=== PATIENT | female | born 1975 | race Caucasian/White ===

== ENCOUNTER 2018-02-16 11:54 | Emergency (ER) | payer MEDICARE ==
[2018-02-16 12:49] VITALS: BP 139/83; PULSE 55; O2SAT 100
--- NOTE | 2018-02-16 13:09 | ERPHSYRPT ---
- History of Present Illness Time Seen by Provider: 02/16/18 12:55 Source: patient Exam Limitations: no limitations Patient Subjective Stated Complaint: STATES HAS BEEN HAVING RIGHT SHOULDER PAIN FOR AWHILE AND HAS GOTTEN WORSE SINCE YESTERDAY. DENIES ANY INJURY Triage Nursing Assessment: AMBULATED TO ROOM PER SELF. SKIN W/D, COLOR NORMAL, RESP EASY. NO INJURY NOTED TO RIGHT SHOULDER. PATIENT UNABLE TO RAISE RIGHT ARM COMPLETELY. GOOD RADIAL PULSE AND ARM AND HAND WARM TO TOUCH WITH NORMAL COLOR AND GOOD CAP REFILL. Physician History: 43 y/o right shoulder pain white female presents with worsening right shoulder pain. pain present for 3 months. worse in last 3 days. no injury. feels as though it it out of place Method of Injury: unknown Quality: constant Severity of Pain-Max: moderate Severity of Pain-Current: mild Extremities Pain Location: shoulder: right Modifying Factors: Improves With: movement (worsens) Associated Symptoms: none, No chest discomfort, No chest pain, No dyspnea, No fever, No jaw pain, No short of breath Allergies/Adverse Reactions: No Known Drug Allergies Allergy (Unverified 02/16/18 12:40) Hx Tetanus, Diphtheria Vaccination/Date Given: No Hx Influenza Vaccination/Date Given: No Hx Pneumococcal Vaccination/Date Given: No - Review of Systems Constitutional: No Symptoms, No Fever, No Weakness Eyes: No Symptoms, No Discharge, No Eye Pain Ears, Nose, & Throat: No Symptoms, No Ear Pain Respiratory: No Symptoms, No Cough, No Dyspnea, No Stridor, No Wheezing Cardiac: No Symptoms, No Chest Pain, No Palpitations, No Syncope Abdominal/Gastrointestinal: No Symptoms, No Abdominal Pain, No Nausea, No Vomiting, No Diarrhea Genitourinary Symptoms: No Symptoms, No Dysuria, No Frequency, No Hematuria Musculoskeletal: Joint Pain (right shoulder) Skin: No Symptoms Neurological: No Symptoms, No Dizziness, No Gait Changes, No Headache Psychological: No Symptoms Endocrine: No Symptoms Hematologic/Lymphatic: No Symptoms Immunological/Allergic: No Symptoms All Other Systems: Reviewed and Negative - Past Medical History Pertinent Past Medical History: Yes Neurological History: No Pertinent History ENT History: No Pertinent History Cardiac History: No Pertinent History Respiratory History: No Pertinent History Endocrine Medical History: No Pertinent History Musculoskeletal History: No Pertinent History GI Medical History: No Pertinent History History: No Pertinent History Psycho-Social History: Depression Female Reproductive Disorders: No Pertinent History Other Medical History: ptsd - Past Surgical History Past Surgical History: Yes Neuro Surgical History: No Pertinent History Cardiac: No Pertinent History Respiratory: No Pertinent History Gastrointestinal: No Pertinent History Female Surgical History: Section - Social History Smoking Status: Current every day smoker How long have you smoked: 27 Exposure to second hand smoke: No Drug Use: marijuana Patient Lives Alone: No - Female History Hx Last Menstrual Period: 01/31/18 Hx Now: No - Nursing Vital Signs Nursing Vital Signs: Initial Vital Signs Temperature 97.3 F 02/16/18 12:36 Pulse Rate 55 L 02/16/18 12:36 Respiratory Rate 16 02/16/18 12:36 Blood Pressure 139/83 02/16/18 12:36 O2 Sat by Pulse Oximetry 100 02/16/18 12:36 Pain Scale Pain Intensity 10 - Physical Exam General Appearance: mild distress, alert, anxiety Eyes, Ears, Nose, Throat Exam: normal ENT inspection Neck Exam: normal inspection, non-tender, supple, full range of motion Cardiovascular/Respiratory Exam: chest non-tender, normal breath sounds, regular rate/rhythm, heart sounds normal Abdominal Exam: non-tender, soft Back Exam: normal inspection Shoulder Exam: normal inspection, no evidence of injury, normal ROM, pain, soft tissue tenderness (right ) Elbow/Forearm Exam: normal inspection, non-tender, no evidence of injury, normal ROM Wrist Exam: normal inspection, non-tender, no evidence of injury, normal ROM Hand Exam: normal inspection, non-tender, no evidence of injury, normal ROM Neuro/Tendon Exam: normal sensation, normal motor functions, normal tendon functions Mental Status Exam: alert, oriented x 3, cooperative Skin Exam: normal color, warm, dry SpO2 Interpretation: normal, borderline oxygenation, hypoxic SpO2: 100 Oxygen Delivery: Room Air - Course Nursing assessment & vital signs reviewed: Yes Ordered Tests: Active Orders 24 hr Category Date Time Status SHOULDER Stat Exams 02/16/18 13:10 Completed - Progress Progress: unchanged Progress Note: 02/16/18 14:02 xray-no acute process; chronic changes present Counseled pt/family regarding: diagnosis, need for follow-up, rad results - Departure Time of Disposition: 14:02 Departure Disposition: Home Clinical Impression: Shoulder pain, right Condition: Stable Critical Care Time: No Referrals: SADIA MOROCHO [Primary Care Provider] - Additional Instructions: follow up with primary doctor for further management Prescriptions: Carisoprodol 350 mg [Soma 350 mg] 350 mg PO Q8H PRN PRN #10 tablet PRN Reason: Muscle Spasms Oxycodone HCl/Acetaminophen [Percocet 5-325 mg Tablet] 1 each PO Q12H PRN PRN # 5 tablet MDD 2 PRN Reason: Pain Prednisone 10 mg [Deltasone 10 mg] 10 mg PO TID #12 tablet
--- NOTE | 2018-02-16 13:38 | XRAY ---
Indication: Pain 3 days. No known injury. Comparison: None 3 views of the right shoulder demonstrates tiny heterotopic ossifications adjacent to the greater tuberosity humerus, sequela to old injury/inflammation. No other bony, articular, or soft tissue abnormalities.
== END 2018-02-16 14:37 | disposition home or self-care (01) ==
LOC: ED 11:54
DX: M25.511 Pain in right shoulder (principal)
CPT/HCPCS: 73030; 99283

== ENCOUNTER → 2019-02-27 | Day surgery (SDC) | payer MEDICARE | LOC: CLIN-SCCH 08:00 | PROVIDERS: ATTEND Nurse Practitioner Family | DX: R09.82 Postnasal drip (principal) | CPT/HCPCS: 99213 ==

== ENCOUNTER 2019-04-03 18:39 | Emergency (ER) | payer MEDICARE ==
[2019-04-03 19:04] VITALS: O2SAT 100
[2019-04-03 19:33] VITALS: BP 133/76; PULSE 67
[2019-04-03] MEDS ORDERED: MOTRIN 600 MG PO ONE (19:33)
[2019-04-03] MEDS ORDERED: Augmentin 875-125 Tablet PO ONE (19:33)
[2019-04-03] MEDS ORDERED: Augmentin 875-125 Tablet ONE (19:42)
--- NOTE | 2019-04-03 19:42 | ERPHSYRPT ---
- History of Present Illness Time Seen by Provider: 04/03/19 18:55 Source: patient Exam Limitations: no limitations Patient Subjective Stated Complaint: STATES HAS HAD SWELLING TO RIGHT JAW AND MOUTH FOR THREE DAYS. STATES HAS A TOOTHACHE. HAD DENTIST APPT TODAY BUT STATES SHE OVERSLEPT. Triage Nursing Assessment: AMBULATED TO ROOM PER SELF. SKIN W/D, COLOR NORMAL. NOTED MODERATE SWELLING TO RIGHT JAW. NO RESP DISTRESS NOTED. Physician History: Patient has had swelling to the right jaw for the past three days. Patient has tried antibiotics for her dog without any relief. Patient had an appointment today with her dentist but she slept through her appointment. Patient is concerned about the mild swelling to her right side of her jaw and under the right side of her tongue, but she denies any pain. Timing/Duration: gradual onset Severity: moderate ENT Location: dental Prearrival Treatment: prescription meds Modifying Factors: Improves With: nothing Associated Symptoms: facial pain/swelling, tooth pain (right lower side), No ear pain (R), No ear pain (L), No cough, No fever, No chills, No change in hearing, No dizziness, No ear drainage, No headache, No hearing loss, No jaw pain, No malaise, No motion sickness, No nasal congestion/drainage, No epistaxis , No nasal foreign body, No neck pain, No poor fluid intake, No poor solids intake, No ringing of ears, No swollen glands, No sinus infection, No sore throat, No difficulty swallowing, No voice change Allergies/Adverse Reactions: No Known Drug Allergies Allergy (Verified 04/03/19 18:53) Hx Tetanus, Diphtheria Vaccination/Date Given: No Hx Influenza Vaccination/Date Given: No Hx Pneumococcal Vaccination/Date Given: No - Review of Systems Constitutional: No Fever, No Chills Eyes: No Eye Pain, No Eye Redness, No Vision Changes Ears, Nose, & Throat: No Ear Pain, No Nose Congestion, No Mouth Pain, No Throat Pain, No Throat Swelling, No Painful Swallowing Respiratory: No Cough, No Dyspnea Cardiac: No Chest Pain, No Edema, No Syncope Abdominal/Gastrointestinal: No Abdominal Pain, No Nausea, No Vomiting, No Diarrhea Genitourinary Symptoms: No Dysuria, No Hematuria, No Flank Pain Musculoskeletal: No Back Pain, No Neck Pain Skin: No Rash Neurological: No Dizziness, No Focal Weakness, No Sensory Changes Psychological: No Symptoms Endocrine: No Excessive Sweating Hematologic/Lymphatic: No Easy Bleeding, No Easy Bruising All Other Systems: Reviewed and Negative - Past Medical History Pertinent Past Medical History: Yes Neurological History: No Pertinent History ENT History: No Pertinent History Cardiac History: No Pertinent History Respiratory History: No Pertinent History Endocrine Medical History: No Pertinent History Musculoskeletal History: No Pertinent History GI Medical History: No Pertinent History History: No Pertinent History Psycho-Social History: Depression Female Reproductive Disorders: No Pertinent History Other Medical History: ptsd - Past Surgical History Past Surgical History: Yes Neuro Surgical History: No Pertinent History Cardiac: No Pertinent History Respiratory: No Pertinent History Gastrointestinal: No Pertinent History Female Surgical History: Section - Social History Smoking Status: Current every day smoker How long have you smoked: 20 Exposure to second hand smoke: No Drug Use: none Patient Lives Alone: No - Female History Hx Last Menstrual Period: THREE DAYS AGO Hx Now: No - Nursing Vital Signs Nursing Vital Signs: Initial Vital Signs Temperature 100.4 F 04/03/19 18:47 Pulse Rate 80 04/03/19 18:47 Respiratory Rate 18 04/03/19 18:47 Blood Pressure 144/83 04/03/19 18:47 O2 Sat by Pulse Oximetry 100 04/03/19 18:47 Pain Scale Pain Intensity 9 - Physical Exam General Appearance: no apparent distress, alert Eye Exam: bilateral eye: normal inspection, PERRL, EOMI Ear Exam: bilateral ear: auricle normal, canal normal, TM normal Nasal Exam: normal inspection Throat Exam: pharynx normal, mandibular swelling (mild, right side only), moist mucus membranes (broken tooth #30), No dental tenderness, No excessive drooling , No maxillary swelling, No pharynx swelling, No pharynx tenderness, No tongue swollen, No tonsillar exudate, No tonsillar swelling, No trismus, No uvula swelling Neck Exam: normal inspection, non-tender, supple, full range of motion, trachea midline, No JVD, No limited range of motion, No lymphadenopathy (L), No tender midline, No Brudzinski's sign Cardiovascular/Respiratory Exam: normal breath sounds, regular rate/rhythm, heart sounds normal, no JVD, no M/R/G, no respiratory distress Abdominal Exam: non-tender, soft, No guarding, No tenderness Neurologic Exam: alert, oriented x 3, sales support manager II-XII nml as tested, normal mood/ affect, sensation nml, No motor deficits, No facial droop Skin Exam: normal color, warm, dry SpO2 Interpretation: normal SpO2: 100 O2 Delivery: Room Air Ordered Tests: Medication Summary Discontinued Medications Generic Name Dose Route Start Last Admin Trade Name Ederq PRN Reason Stop Dose Admin Amoxicillin/Clavulanate Potassium 875 mg 04/03/19 19:33 Augmentin 875-125 Tablet PO 04/03/19 19:34 STAT ONE Ibuprofen 600 mg 04/03/19 19:33 Motrin 600 Mg PO 04/03/19 19:34 STAT ONE - Progress Progress: unchanged Progress Note: 04/03/19 19:42 Patient understands not to do any further smoking until she sees her dentist. Patient does not need any other further treatment here in the emergency department besides oral medication as she is hemodynamically in good condition, has a clear upper airway and is able to take oral medication. Patient denies any pain at this time is concerned it is fine to the jaw underneath her right tongue. I do not see any Cain's angina at this time or any other deeper posterior oropharyngeal infections at this time that require CT scan imaging or specialist evaluation immediately. Counseled pt/family regarding: diagnosis, need for follow-up - Departure Departure Disposition: Home Clinical Impression: Periapical abscess, Elevated blood pressure reading without diagnosis of hypertension Condition: Good Critical Care Time: No Referrals: SADIA MOROCHO [Primary Care Provider] - 04/04/19 (Follow-up with your dentist on 04/04/2019) Instructions: Tooth Abscess (DC), Tooth Decay, Adult (DC), Dental Pain (DC), Quitting Smoking Additional Instructions: Return immediately back to the emergency department if any worse swelling to the face, difficulty swallowing, fever, drooling, difficulty controlling her secretions, painful swallowing, redness to face, neck or jaw, difficulty breathing, tongue swelling, or any other concerning signs or symptoms that were not present at today's emergency department visit for immediate reevaluation in the emergency department. Do not smoke for the next 2 days. Follow up with your dentist you had an 04/03/2019 appointment on 04/04/2019. Discharge/Care Plan PASCALE MANZANO was seen on 04/03/19 in the Emergency Room. The patient was counseled regarding Diagnosis,Lab results, Imaging studies, need for follow up and when to return to the Emergency Room. Prescriptions given: Clindamycin 300mg TID for 7 days; Lodine Twice Daily as needed for pain Discharge Note I have spoken with the patient. I have explained the patient's condition, diagnosis and treatment plan based on the information available to me at this time. I have answered the patient's questions and addressed any concerns. The patient has a good understanding of the patient's diagnosis, condition and treatment plan as can be expected at this point. The vital signs have been stable. The patient's condition is stable and appropriate for discharge from the emergency department. The patient will pursue further outpatient evaluation with the primary care physician or other designated or consulting physician as outlined in the discharge instructions. The patient is agreeable to this plan of care and follow -up instructions have been explained in detail. The patient has received these instruction. The patient is aware that any significant change in condition or worsening of symptoms should prompt an immediate return to this or the closest emergency department or call 911. Prescriptions: Clindamycin HCl 300 mg PO TID 7 Days #21 capsule Etodolac 400 mg [Lodine 400 mg] 400 mg PO BID PRN PRN #20 tablet PRN Reason: Pain
[2019-04-03] MEDS ORDERED: MOTRIN 600 MG ONE (19:43)
== END 2019-04-03 20:03 | disposition home or self-care (01) ==
LOC: ED 18:39
DX: K04.7 Periapical abscess without sinus (principal); R03.0 Elevated blood-pressure reading, without diagnosis of hypertension
CPT/HCPCS: 99283; A9270-GY

== ENCOUNTER 2019-09-04 12:50 | Emergency (ER) | payer MEDICARE ==
--- NOTE | 2019-09-04 13:17 | ERPHSYRPT ---
- History of Present Illness Time Seen by Provider: 09/04/19 12:55 Source: patient Exam Limitations: no limitations Patient Subjective Stated Complaint: Pt states "For the past 7 days my left shoulder hurts. I didnt to anythin to it, but I cannot move it without it hurting. It happened about a year ago and Dr. Fraser saw me here and gave me some medicine and a steroid and after two days it went away." Triage Nursing Assessment: Pt presented alert and oriented X 3, ski pwd Pt ambulates with an upright steady gait, pt holding her left arm bent and up against her body supporting her shoulder. Physician History: 44 yo wf w L shoulder pain x7days. Pt has had similar pain in the past. Pain is 9 out of 10 and worse w movement. She denies acute injury/chest pain/dyspnea.Pt is disabled due to PTSD. Occurred: other (1 week) Method of Injury: unknown Quality: constant Severity of Pain-Max: severe Severity of Pain-Current: severe Extremities Pain Location: shoulder: left Modifying Factors: Improves With: movement Associated Symptoms: none Allergies/Adverse Reactions: No Known Drug Allergies Allergy (Verified 04/03/19 18:53) Home Medications: No Reportable Medications [No Reported Medications] 09/04/19 [History] Hx Tetanus, Diphtheria Vaccination/Date Given: No Hx Influenza Vaccination/Date Given: No Hx Pneumococcal Vaccination/Date Given: No Immunizations Up to Date: Yes Travel Risk - International Travel Have you traveled outside of the country in past 3 weeks: No Have you or anyone close to you been diagnosed with or: No Do your reside in a community with a known COVID-19 case?: Yes If Yes where:: [place] - Coronavirus Screening Has patient experienced Coronavirus symptoms: No - Review of Systems Constitutional: No Symptoms Eyes: No Symptoms Ears, Nose, & Throat: No Symptoms Respiratory: No Symptoms Cardiac: No Symptoms Abdominal/Gastrointestinal: No Symptoms Genitourinary Symptoms: No Symptoms Musculoskeletal: No Arthralgias, No Back Pain, No Neck Pain, No Deformity, No Fall, No Injury, No Joint Redness, No Joint Pain, No Joint Swelling, No Myalgias Skin: No Symptoms Neurological: No Symptoms Psychological: No Symptoms Endocrine: No Symptoms Hematologic/Lymphatic: No Symptoms Immunological/Allergic: No Symptoms - Past Medical History Pertinent Past Medical History: Yes Neurological History: No Pertinent History ENT History: No Pertinent History Cardiac History: No Pertinent History Respiratory History: No Pertinent History Endocrine Medical History: No Pertinent History Musculoskeletal History: No Pertinent History GI Medical History: No Pertinent History History: No Pertinent History Psycho-Social History: Depression Female Reproductive Disorders: No Pertinent History Other Medical History: ptsd - Past Surgical History Past Surgical History: Yes Neuro Surgical History: No Pertinent History Cardiac: No Pertinent History Respiratory: No Pertinent History Gastrointestinal: No Pertinent History Female Surgical History: Section - Social History Smoking Status: Current every day smoker How long have you smoked: years Exposure to second hand smoke: Yes Alcohol Use: None Drug Use: none Patient Lives Alone: No - Female History Hx Last Menstrual Period: 08/30/2019 Hx Now: No - Nursing Vital Signs Nursing Vital Signs: Initial Vital Signs Temperature 98.4 F 09/04/19 12:57 Pulse Rate 90 09/04/19 12:57 Respiratory Rate 22 09/04/19 12:57 Blood Pressure 147/97 09/04/19 12:57 O2 Sat by Pulse Oximetry 100 09/04/19 12:57 Pain Scale Pain Intensity 8 - Physical Exam General Appearance: no apparent distress Eyes, Ears, Nose, Throat Exam: normal ENT inspection Neck Exam: normal inspection, non-tender, supple, full range of motion Cardiovascular/Respiratory Exam: chest non-tender, normal breath sounds, regular rate/rhythm, heart sounds normal Abdominal Exam: non-tender, soft, no organomegaly Back Exam: normal inspection, normal range of motion, No CVA tenderness, No vertebral tenderness, No rash, No decreased range of motion Shoulder Exam: limited ROM (TTP over L lateral deltoid/pain w abduction and external rotation/good radial pulse, distal sensation, and capillary return), No deformity Elbow/Forearm Exam: normal inspection Wrist Exam: normal inspection Hand Exam: normal inspection Neuro/Tendon Exam: normal sensation, normal motor functions, normal tendon functions, responds to pain, no evidence tendon injury, No motor deficit, No sensory deficit Mental Status Exam: alert, oriented x 3, cooperative, No agitated, No uncooperative, No depressed affect, No disoriented to person, No disoriented to place, No disoriented to time, No intoxicated appearance, No lethargy, No unresponsive Skin Exam: normal color, warm, dry, No rash SpO2 Interpretation: normal SpO2: 100 O2 Delivery: Room Air - Course Nursing assessment & vital signs reviewed: Yes Ordered Tests: Medication Summary Discontinued Medications Generic Name Dose Route Start Last Admin Trade Name Kalia PRN Reason Stop Dose Admin Ketorolac Tromethamine 60 mg 09/04/19 13:11 09/04/19 13:22 Toradol 30 Mg Injection IM 09/04/19 13:12 60 mg STAT ONE Administration Ketorolac Tromethamine Confirm 09/04/19 13:21 Toradol 30 Mg Injection Administered 09/04/19 13:22 Dose 60 mg .ROUTE .STK-MED ONE - Progress Progress Note: 09/04/19 13:19 60mg IM toradol 09/04/19 13:25 Pt given Rx for Toradol 10mg #10/Norflex 100mg #10 - Departure Departure Disposition: Home Clinical Impression: Tendinitis of left rotator cuff, Elevated blood pressure reading without diagnosis of hypertension Condition: Stable Critical Care Time: No Referrals: SADIA MOROCHO [Primary Care Provider] - Additional Instructions: Rest/heat/Massage Follow up with family MD for continued pain Toradol and norflex as needed
[2019-09-04] MEDS ORDERED: TORAdol 30 mg Injection ONE (13:21)
[2019-09-04] MEDS: TORAdol 30 mg Injection IM ONE (13:22)
[2019-09-04 13:53] VITALS: BP 114/85; PULSE 88; O2SAT 97
== END 2019-09-04 13:54 | disposition home or self-care (01) ==
LOC: ED 12:50
DX: M77.9 Enthesopathy, unspecified (principal); R03.0 Elevated blood-pressure reading, without diagnosis of hypertension; M25.512 Pain in left shoulder
CPT/HCPCS: 96372; 99283; J1885

== ENCOUNTER 2020-02-06 19:52 | Emergency (ER) | payer MEDICARE ==
[2020-02-06] MEDS ORDERED: Adacel Vial IM ONE ×2 (20:17→20:21)
[2020-02-06] MEDS ORDERED: SUBLIMAZE 100 MCG/2 ML IV ONE ×2 (20:17→21:31)
[2020-02-06 20:18] VITALS: O2SAT 100
[2020-02-06] MEDS ORDERED: Zofran 4 MG/2 ML VIAL IV ONE (20:18)
[2020-02-06] MEDS ORDERED: Zofran 4 MG/2 ML VIAL ONE (20:21)
[2020-02-06] MEDS ORDERED: SUBLIMAZE 100 MCG/2 ML ONE ×2 (20:21→21:31)
--- NOTE | 2020-02-06 21:37 | ERPHSYRPT ---
- History of Present Illness Source: patient Exam Limitations: no limitations Patient Subjective Stated Complaint: "I was messing with a melissa pigeon thrower and the arm hit my face." Triage Nursing Assessment: patient reported that she was using a melissa pigeon thrower and didn't know how it worked. This resulted in the patient being hit in the face by the throwing arm. Patient denied any loss of consciousness. Denied visual/auditory disturbanes. Reported an aching/throbbing pain in the forehead. Pupils 3mm brisk direct and consensual reaction to light. Nasal bridge swollen with 2cm laceration to the superior nasal bridge and 0.5cm laceration to the left lateral nose. No noted bleeding from nares. No visual septal deviation upon visualization. No tenderness to palpation of the facial bones. No cervical spine tenderness. oral mucosa pink/moist without bleeding or broken teeth. Symmetrical chest expansion. Heart tones S1 S2 regular rate and rhythm. Lungs clear to auscultation with adequate airflow. Radial pulses +2 bilateral. Physician History: 45 yo wf w melissa pidgeon vs face before arrival. Accidental per pt. She denies LOC but has a FALCON/glabellar lac/nasal lac. Pain is 5/10 on scale. Pt needs Tdap. Occurred: just prior to arrival Severity: moderate Head Injury Location: frontal Method of Injury: direct blow Loss of Consciousness: no loss of consciousness Associated Symptoms: headaches, No nausea, No vomiting, No abdominal pain, No shortness of breath, No heartburn, No diaphoresis, No cough, No chills, No chest pain, No fever, No loss of appetite, No malaise, No rash, No syncope, No seizure, No weakness Allergies/Adverse Reactions: No Known Drug Allergies Allergy (Verified 02/06/20 19:54) Home Medications: Alprazolam 0.5 mg [xanAX 0.5 MG] 1 tab PO DAILY 02/06/20 [History] Sertraline HCl 1 tab PO DAILY 02/06/20 [History] Hx Tetanus, Diphtheria Vaccination/Date Given: No Hx Influenza Vaccination/Date Given: No Hx Pneumococcal Vaccination/Date Given: No Travel Risk - International Travel Have you traveled outside of the country in past 3 weeks: No - Coronavirus Screening Are you exhibiting any of the following symptoms?: No Close contact with a COVID-19 positive Pt in past 14-21 Days: No - Review of Systems Constitutional: No Symptoms Eyes: No Symptoms Ears, Nose, & Throat: Nose Pain Respiratory: No Symptoms Cardiac: No Symptoms Abdominal/Gastrointestinal: No Symptoms Genitourinary Symptoms: No Symptoms Musculoskeletal: No Symptoms Skin: No Symptoms Neurological: No Symptoms Psychological: No Symptoms Endocrine: No Symptoms Hematologic/Lymphatic: No Symptoms Immunological/Allergic: No Symptoms - Past Medical History Pertinent Past Medical History: Yes Neurological History: No Pertinent History ENT History: No Pertinent History Cardiac History: No Pertinent History Respiratory History: No Pertinent History Endocrine Medical History: No Pertinent History Musculoskeletal History: No Pertinent History GI Medical History: No Pertinent History History: No Pertinent History Psycho-Social History: Depression Female Reproductive Disorders: No Pertinent History Other Medical History: ptsd - Past Surgical History Past Surgical History: Yes Neuro Surgical History: No Pertinent History Cardiac: No Pertinent History Respiratory: No Pertinent History Gastrointestinal: No Pertinent History Female Surgical History: Section - Social History Smoking Status: Current every day smoker How long have you smoked: 30 Exposure to second hand smoke: Yes Alcohol Use: None Drug Use: none Patient Lives Alone: No - Female History Hx Now: No - Nursing Vital Signs Nursing Vital Signs: Initial Vital Signs Pulse Rate 72 02/06/20 19:52 Respiratory Rate 16 02/06/20 19:52 Blood Pressure 136/76 02/06/20 19:52 O2 Sat by Pulse Oximetry 100 02/06/20 19:52 Pain Scale Pain Intensity 3 - [place] Coma Score Best Eye Response ([place]): (4) open spontaneously Best Verbal Response ([place]): (5) oriented Best Motor Response ([place]): (6) obeys commands [place] Total: 15 - Physical Exam General Appearance: no apparent distress (In pain) Head Injury: active bleeding (Glabellar lac/nasal bridge lac) Eye Exam: bilateral eye: normal inspection, PERRL, EOMI ENT Exam: airway nml, evidence of ENT injury, hearing grossly normal, TM obscured by wax, No clear fluid (ears), No clear fluid (nose), No midface instability, No decreased hearing, No hemotympanum Neck Exam: supple, trachea midline, full range of motion, normal inspection, No focal neuro deficit, No limited range of motion, No meningismus, No mass (C- spine nttp) Cardiovascular/Respiratory Exam: chest non-tender, normal breath sounds, regular rate/rhythm, heart sounds normal Gastrointestinal/Abdominal Exam: soft, non tender, no distention, no mass Pelvic Exam: not done Extremity Exam: non-tender, normal range of motion, normal inspection, normal capillary refill, pelvis stable, No no calf tenderness, No no pedal edema Mental Status Exam: alert, oriented x 3, cooperative, No agitated, No uncooperative valver Exam: normal hearing, normal speech, PERRL, No abnormal eye position, No facial asymmetry, No facial droop, No facial paresthesias, No facial weakness Coordination/Gait Exam: normal cerebellar function Motor/Sensory Exam: no motor deficit, no sensory deficit, no pronator drift DTR Exam: bicep (R): 2+, bicep (L): 2+, knee (L): 2+ Skin Exam: normal color, warm, dry, No rash Lymphatic Exam: No adenopathy SpO2 Interpretation: normal SpO2: 100 O2 Delivery: Room Air - Course Nursing assessment & vital signs reviewed: Yes - CT Exams Head CT Interpretation: Discussed w/radiologist (STS) Maxillofacial Bones CT Interpretation: Discussed w/radiologist (No fx) Ordered Tests: Active Orders 24 hr Category Date Time Status FACIAL BONES WO CONTRAST [CT] Stat Exams 02/06/20 20:16 Taken HEAD WITHOUT CONTRAST [CT] Stat Exams 02/06/20 20:16 Taken Medication Summary Discontinued Medications Generic Name Dose Route Start Last Admin Trade Name Kalia PRN Reason Stop Dose Admin Hydrocodone Bitart/Acetaminophen 2 tab 02/06/20 22:10 02/06/20 22:17 [place] 10/325 Mg Tablet PO 02/06/20 22:11 2 tab SENT HOME W/ PATIENT ONE Administration Hydrocodone Bitart/Acetaminophen Confirm 02/06/20 22:14 [place] 10/325 Mg Tablet Administered 02/06/20 22:15 Dose 2 tab .ROUTE .STK-MED ONE Diphtheria/Tetanus/Acell Pertussis 0.5 ml 02/06/20 20:17 02/06/20 20:30 Adacel Vial IM 02/06/20 20:18 0.5 ml .ONCE ONE Administration Diphtheria/Tetanus/Acell Pertussis Confirm 02/06/20 20:21 Adacel Vial Administered 02/06/20 20:22 Dose 0.5 ml IM .STK-MED ONE Fentanyl Citrate 50 mcg 02/06/20 20:17 02/06/20 20:22 Sublimaze 100 Mcg/2 Ml IV 02/06/20 20:18 50 mcg STAT ONE Administration Fentanyl Citrate Confirm 02/06/20 20:21 Sublimaze 100 Mcg/2 Ml Administered 02/06/20 20:22 Dose 100 mcg .ROUTE .STK-MED ONE Fentanyl Citrate 50 mcg 02/06/20 21:31 02/06/20 21:35 Sublimaze 100 Mcg/2 Ml IV 02/06/20 21:32 50 mcg STAT ONE Administration Fentanyl Citrate Confirm 02/06/20 21:31 Sublimaze 100 Mcg/2 Ml Administered 02/06/20 21:32 Dose 100 mcg .ROUTE .STK-MED ONE Ondansetron HCl 4 mg 02/06/20 20:18 02/06/20 20:23 Zofran 4 Mg/2 Ml Vial IV 02/06/20 20:19 4 mg STAT ONE Administration Ondansetron HCl Confirm 02/06/20 20:21 Zofran 4 Mg/2 Ml Vial Administered 02/06/20 20:22 Dose 4 mg .ROUTE .STK-MED ONE - Progress Progress: improved Progress Note: 02/06/20 21:39 2cm x1 cm glabellar lac/Prepped w Hibiclens/Anes w 1% [place] wo Epi/closed 5.0 Ethilon x8/No comps 1cm nasal bridge lac/Prepped w Hibiclens/Anes w 1% [place] wo Epi/closed 5.0 Ethilon x 3/No comps Pt given 50umg IN Fentanyl x2 w improvement in pain Counseled pt/family regarding: need for follow-up, rad results - Departure Departure Disposition: Home Clinical Impression: Facial laceration repair, Contusion of forehead, Nasal contusion Condition: Stable Critical Care Time: No Referrals: SADIA MOROCHO [ACTIVE STAFF] - Instructions: Laceration Repair With Stitches (DC), Minor Head Injury (DC) Additional Instructions: Keep lacerations dry for 48 hours, then wash 1-2 times a day with soap/water Sutures out in 7 days Watch for signs of infection-redness/pain/pus/temperature greater than 100.5 Pain meds as needed Prescriptions: Hydrocodone Bit/Acetaminophen [[place] 10-325 Tablet] 1 each PO Q6H PRN PRN #8 tablet PRN Reason: Pain Ondansetron ODT 4 MG [Zofran Odt 4 mg] 4 mg PO Q6H PRN PRN #10 tab.rapdis PRN Reason: Nausea/Vomiting Cephalexin Mh 500 mg [Keflex 500 mg] 500 mg PO TID 7 Days #21 capsule
[2020-02-06 22:04] VITALS: BP 138/80; PULSE 54
[2020-02-06] MEDS ORDERED: Norco 10/325 MG Tablet PO ONE (22:10)
[2020-02-06] MEDS ORDERED: Norco 10/325 MG Tablet ONE (22:14)
--- NOTE | 2020-02-07 08:50 | XRAY ---
Indication: Projectile injury to the face/nose. Multiple contiguous axial images obtained through the head without contrast. Comparison: None Normal appearing brain parenchyma, ventricles, and bony calvarium. Small left frontal scalp hematoma. Minimal mucosal thickening of both ethmoid and both maxillary sinuses with tiny right maxillary sinus fluid leveling. Mastoid air cells are clear. CT facial bones reported separately. Impression: 1. Left frontal scalp hematoma. No underlying fracture or acute intracranial abnormalities. 2. Incidental paranasal sinus disease.
--- NOTE | 2020-02-07 08:54 | XRAY ---
ndication: Projectile injury to the face/nose. Multiple contiguous axial images obtained through the facial bones. Sagittal and coronal reformatted images obtained. Comparison: January 04, 2009 There is nasal and left midline forehead soft tissue swelling with tiny laceration. No acute fracture, suspicious bony lesions, or radiopaque foreign body. Orbits including roof, reid, and floors are intact. There is moderate mucosal thickening of both ethmoid and lesser degree both maxillary sinuses with tiny right maxillary sinus fluid leveling. Stable nasal septal deviation to the right. Left TMJ demonstrates moderate degenerative changes not previously imaged. Remaining visualized noncontrasted soft tissues unremarkable. CT head reported separately. Impression: 1. Nasal and left midline forehead soft tissue swelling with laceration. 2. Negative acute fracture or radiopaque foreign body. 3. Incidental paranasal sinus disease, nasal septal deviation, and degenerative changes left TMJ.
== END 2020-02-06 22:11 | disposition home or self-care (01) ==
LOC: ED 19:52
DX: S01.81XA Laceration without foreign body of other part of head, initial encounter (principal); S00.83XA Contusion of other part of head, initial encounter; S00.33XA Contusion of nose, initial encounter; W22.8XXA Striking against or struck by other objects, initial encounter; Y93.89 Activity, other specified; Y92.89 Other specified places as the place of occurrence of the external cause; R51.9 Headache, unspecified
CPT/HCPCS: 12011; 70450; 70486; 90471; 90715; 96374; 96375; 96376; 99284; J2405; J3010; A9270-GY

== ENCOUNTER 2024-06-27 11:16 | Day surgery (SDC) | payer MEDICARE ==
[2024-06-27] MEDS: Lactated Ringers 1,000 ML IV SCH (11:33)
[2024-06-27 11:44] LABS: HCG URINE TEST NEGATIVE (NEGATIVE)
[2024-06-27] MEDS ORDERED: propofoL IV ONE ×2 (14:05→14:11)
[2024-06-27 14:44] VITALS: O2SAT 100
[2024-06-27 14:47] VITALS: TEMP 97.7
[2024-06-27 14:52] VITALS: BP 114/75; PULSE 71; RESP 16
--- NOTE | 2024-06-28 11:30 | OP ---
SURGERY DATE/TIME: 06/27/2024 [id number] PREOPERATIVE DIAGNOSES: Positive Cologuard and family history of primary relative at age 50 with colon cancer. POSTOPERATIVE DIAGNOSIS: Colon polyps. PROCEDURE: Colonoscopy with hot snare polypectomy x2. SURGEON: Nicholas Snell MD ANESTHESIA: IV. CONDITION: Stable. COMPLICATIONS: None. SPECIMEN: See below. INDICATION: The patient is a 49-year-old female whose mother had colon cancer at age 50, and she now presents with a positive Cologuard. No prior colonoscopy. Discussed with the patient. She elected to proceed. FINDINGS: Fair preparation greater than 90% visualization. Sigmoid colon at 15 mm, sessile area had taken with a hot snare, unclear if this is true polyp. Pedunculated 10 mm polyp taken with a hot snare with a healthy base. DESCRIPTION OF PROCEDURE AND FINDINGS: Patient was brought to the endoscopy suite. Routinely positioned and prepared. IV anesthesia induced by Anesthesia. External exam and digital rectal exam normal. Colonoscope was inserted, advanced to the cecum, confirmed by the ileocecal valve and the appendiceal orifice. The preparation was [place] fair preparation with greater than 90% visualization. The withdrawal time was greater than 6 minutes. On withdrawal, in the sigmoid colon, there was a 15 mm slightly nodular area that was sessile suspicious for polyp. It was either polyp or redundant mucosa and was taken with a hot snare completely. That was hemostatic, satisfactory. Then, on the rectosigmoid 15 cm from the anus, there was a pedunculated 1 cm polyp taken with hot snare, definitely down on the normal base stalk of the polyp. Retroflexion normal. Patient tolerated the procedure well, was taken to Recovery in stable condition.
== END 2024-06-27 15:15 | disposition home or self-care (01) ==
LOC: SDC 11:16
PROVIDERS: ATTEND Surgery
DX: D12.3 Benign neoplasm of transverse colon (principal); R19.5 Other fecal abnormalities; Z80.0 Family history of malignant neoplasm of digestive organs
CPT/HCPCS: 81025; J2704